=== PATIENT | male | born 2000 | race Caucasian/White ===

== ENCOUNTER 2020-05-11 19:47 | Emergency (ER) | payer OTHER, SELFPAY ==
[2020-05-11 19:50] VITALS: BP 123/68; PULSE 99; RESP 20; TEMP 36.7; O2SAT 98; BMI 21.7
--- NOTE | 2020-05-11 19:56 | XR_ITS ---
PROCEDURE: XR SHOULDER LT MIN 2V CLINICAL INDICATION: FALL Pain COMPARISON: No exams were available for comparison FINDINGS: No fracture or dislocation. No lytic or blastic change. There is normal mineralization. The joint spaces are well-preserved. No significant degenerative/arthritic changes. No erosive changes evident. Other findings:None. IMPRESSION: No acute findings. Dictated by: Slick Cobb MD 05/12/2020 05:19 Slick Cobb MD in [place] 05/12/2020 05:19
--- NOTE | 2020-05-11 19:56 | XR_ITS ---
PROCEDURE: XR SCAPULA LT CLINICAL INDICATION: FALL Posttraumatic pain COMPARISON: No exams were available for comparison FINDINGS: No fracture or dislocation. No lytic or blastic change. There is normal mineralization. The joint spaces are well-preserved. No significant degenerative/arthritic changes. No erosive changes evident. Other findings:None. IMPRESSION: No acute findings. Dictated by: Slick Cobb MD 05/12/2020 05:18 Slick Cobb MD in [place] 05/12/2020 05:18
--- NOTE | 2020-05-11 20:04 | HMH.EDUTC ---
[facility] [place] Disposition Clinical Impression: Muscle strain, shoulder region Qualifiers: Encounter type: initial encounter Laterality: left Qualified Code(s): S46.912A - Strain of unspecified muscle, fascia and tendon at shoulder and upper arm level, left arm, initial encounter Disposition: Home, Self-Care Condition on Discharge: Good Instructions: Muscle Strain, Methocarbamol, DI for Muscle Spasm Additional Instructions: *Ibuprofen blanca 6 hours with meal as needed for pain/inflammation if your doctor has told you that you can take it *Not additional anti-inflammatory like motrin, aleve, advil with the above amount of ibuprofen. You can still take Tylenol every 4 hours as needed if you need something else for pain *Ice 20 minutes every 2 hours for the first 48 hours after the initial injury followed by moist heat every 20 minutes 3-4 times a day to affected area *Muscle relaxer as prescribed as needed for muscle spasms but remember, it WILL cause drowsiness You cannot take it and drive, operate machinery or care for small children. *Keep this area active, no movement leads to more stiffness, However take it easy and avoid heavy lifting pushing or pulling *Follow up with you family doctor if no improvement for further treatment next week You may call back to the [facility] tomorrow for the official reading of your xray by the Radiologist Straight to ER if any life threatening symptoms Over the counter Muscle rubs like biofreeze may help with pain along with over the counter patches like salonpas Prescriptions: methocarbamoL [Methocarbamol 500mg Tablet] 500 mg PO BID PRN 5 Days #10 tab PRN Reason: Muscle Spasm Transmission Status: Pending to [id number] Referrals: Anisa Shirley [Primary Care Provider] - As needed Time of Disposition: 20:42 Medical Decision Making - Keshawn Inquiry Pt receiving controlled substance: No Keshawn was queried for this patient: No Vital Signs: 05/11/20 19:50 Temperature 98.0 F Temperature Source Oral Pulse Rate [Right Brachial] 99 H Respiratory Rate 20 Blood Pressure [Right Arm] 123/68 Blood Pressure Mean [Right Arm] 86 Blood Pressure Source [Right Arm] Automatic Cuff Blood Pressure Position [Right Arm] Sitting 02 Sat by Pulse Oximetry 98 Oxygen Delivery Method Room Air Orders (Tests/Meds): ORDERS Category Date Time Status XR scapula LT Stat Exams 05/11/20 19:56 Taken XR shoulder LT min 2V Stat Exams 05/11/20 19:56 Taken - Radiology Data #1 Image(s): Shoulder Image Reviewed: Yes I reviewed the patient's radiology image w/the ED provider Preliminary Findings: No Fracture Seen #2 Image(s): Other (scapula) Image Reviewed: Yes I reviewed the patient's radiology image w/the ED provider Preliminary Findings: No Fracture Seen [facility] HPI - General Stated complaint: left shoulder pain Time Seen by Provider: 05/11/20 20:04 Mode of Arrival: Ambulatory Source of Information: Patient, Parent(s) Limitations: No Limitations Description of Symptoms (Recalled from Triage Doc. by RN): PATIENT C/O LEFT SHOULDER PAIN. STATES HE WAS AT A CONSTITUTION PARTY AND FELL, PAIN STARTED 2 DAYS LATER HEENT Symptoms (Recalled from RN notes): No Resp Symptoms (Recalled from RN notes): No Skin Symptoms (Recalled from RN notes): No MS Symptoms (Recalled from RN notes): Yes Functional Status (Recalled from RN notes): WNL - History of Present Illness Provider Complaint: Patient state that he was at a democrat last Friday when he was drinking and fell State that he twisted his ankle and bruised his leg but that has improved States that about 2 days after he fell he started having pain in his left shoulder blade area that hurts when he moves it or tries to raise his arm States that he does not recall hurting it but pain has continued so he come in tonight to get it checked - Related Data Home Medications Medication Instructions Recorded Confirmed Escitalopram Oxalate [Lexapro] 10 mg PO DAILY 05/11/2005/11
[2020-05-11 20:45] VITALS: BP 123/68; PULSE 99; RESP 20; TEMP 36.7; O2SAT 98
== END 2020-05-11 20:50 | disposition home or self-care (01) ==
PROVIDERS: Emergency Provider Nurse Practitioner; PCP Family Medicine
DX: S46.912A Strain of unspecified muscle, fascia and tendon at shoulder and upper arm level, left arm, initial encounter (principal); W01.0XXA Fall on same level from slipping, tripping and stumbling without subsequent striking against object, initial encounter; Y92.89 Other specified places as the place of occurrence of the external cause; F17.210 Nicotine dependence, cigarettes, uncomplicated
CPT/HCPCS: 73010; 73030; 99201

== ENCOUNTER 2020-05-28 11:26 | Emergency (ER) | payer OTHER, SELFPAY ==
[2020-05-28 11:27] VITALS: BP 117/71; PULSE 82; RESP 16; TEMP 36.6; O2SAT 96; BMI 21.1
[2020-05-28 11:45] VITALS: BP 117/71; PULSE 82; RESP 16; TEMP 36.7; O2SAT 96; BMI 21.2
--- NOTE | 2020-05-28 11:49 | XR_ITS ---
PROCEDURE: XR FOOT RT MIN 3V CLINICAL INDICATION: injury Pain COMPARISON: CR Foot L from 12/21/2018 FINDINGS: There is a nondisplaced fracture involving head the 4th metatarsal at the diaphyseal metaphyseal junction. The joint spaces are well-preserved. No significant degenerative/arthritic changes. No erosive changes evident. Other findings:None. IMPRESSION: Nondisplaced fracture head of 4th metatarsal Dictated by: Slick Cobb MD 05/29/2020 05:35 Slick Cobb MD in [place] 05/29/2020 05:35
--- NOTE | 2020-05-28 12:11 | HMH.EDUTC ---
[facility] [place] Disposition Clinical Impression: Fracture of toe Qualifiers: Encounter type: initial encounter Toe: lesser toe Fracture type: closed Phalanx: distal Fracture alignment: nondisplaced Laterality: right Qualified Code(s): S92.534A - Nondisplaced fracture of distal phalanx of right lesser toe(s), initial encounter for closed fracture Disposition: Home, Self-Care Condition on Discharge: Good Instructions: DI for Foot Fracture Additional Instructions: ice 20 mins and repeat every hour elevated splint in place non weight bearing follow up with dr fine in am call for appointment Referrals: Anisa Shirley [Primary Care Provider] - lAayna Reeves DPM [Staff Physician] - Forms: Work/School Release Time of Disposition: 12:34 Medical Decision Making - Keshawn Inquiry Pt receiving controlled substance: No Vital Signs: 05/28/20 11:27 05/28/20 11:45 Temperature 98 F 98.0 F Temperature Source Oral Oral Pulse Rate [Radial] 82 82 Respiratory Rate 16 16 Blood Pressure [Right Arm] 117/71 Blood Pressure [Right Radial Artery] 117/71 Blood Pressure Mean [Right Arm] 86 Blood Pressure Mean [Right Radial Artery] 86 Blood Pressure Source [Right Arm] Automatic Cuff Blood Pressure Position [Right Arm] Sitting Blood Pressure Position [Right Radial Artery] Sitting 02 Sat by Pulse Oximetry 96 96 Oxygen Delivery Method Room Air Room Air Orders (Tests/Meds): ORDERS Category Date Time Status XR foot RT min 3V Stat Exams 05/28/20 11:49 Taken [facility] [place] HPI - General Chief complaint: Extremity Injury, Lower Stated complaint: AO 04/26/20 Rt foot injury Time Seen by Provider: 05/28/20 12:11 Mode of Arrival: Wheelchair Limitations: No Limitations Description of Symptoms (Recalled from Triage Doc. by RN): to ed per pvt car states injured rt foot riding a bull lastnight. - History of Present Illness Provider Complaint: 19 yr old male presents for rt foot pain. pt states he was riding a bull last pm when the bull bucked knocking his foot into the shoot. pt states he is unable to move toes and put weight on foot. - Related Data Home Medications Medication Instructions Recorded Confirmed Escitalopram Oxalate [Lexapro] 10 mg PO DAILY 05/11/20 05/11/20 Previous Rx's Medication Instructions Recorded methocarbamoL [Methocarbamol 500mg 500 mg PO BID PRN 5 Days #10 tab 05/11/20 Tablet] Allergies Allergy/AdvReac Type Severity Reaction Status Date / Time No Known Allergies Allergy Verified 04/27/20 11:49 [facility] History - Hepatitis A Screen Attestation statement:: This patient has been screened for Hepatitis A risk factors. I have reviewed the patient's past medical history: Yes Laterality Cases: Bilateral: Tonsillectomy Other Surgeries: Yes: No Previous Surgery Amputation: No Fractures: No - Social History Smoking Status: Current every day smoker Tobacco Type: cigarettes # Packs/Day (cigarettes): 1 Alcohol Intake: never Alcohol Intake Frequency:: a few times a month Substance Use Type: denies use Occupational Status: other Housing: house Household Members: family Family Hx:: Non-contributory ROS Obtained: Yes Systems reviewed as appropriate & no additional complaints - Constitutional Constitutional: Reports system reviewed and no additional complaints, except as docu, Denies chills - Eyes Eyes: Reports system reviewed and no additional complaints, except as docu, Denies blurry vision - ENT Ears, Nose, Mouth, and Throat: Reports system reviewed and no additional complaints, except as docu, Denies vertigo/dizziness - Cardiovascular Cardiovascular: Reports system reviewed and no additional complaints, except as docu, Denies chest pain - Respiratory Respiratory: Yes system reviewed and no additional complaints, except as docu, No dyspnea - Gastrointestinal Gastrointestingal: Reports: system reviewed and no additional complaints, except as docu. Denies: nausea - Genitourinary
[2020-05-28 12:55] VITALS: BP 117/71; PULSE 82; RESP 16; TEMP 36.7; O2SAT 96
== END 2020-05-28 13:06 | disposition home or self-care (01) ==
PROVIDERS: Emergency Provider Nurse Practitioner Family; PCP Family Medicine
DX: S92.344A Nondisplaced fracture of fourth metatarsal bone, right foot, initial encounter for closed fracture (principal); V80.018A Animal-rider injured by fall from or being thrown from other animal in noncollision accident, initial encounter; Y93.I9 Activity, other involving external motion; Y92.89 Other specified places as the place of occurrence of the external cause; F17.210 Nicotine dependence, cigarettes, uncomplicated
CPT/HCPCS: 29515; 73630; 99203; G0463

== ENCOUNTER → 2020-05-29 16:21 | Outpatient (CLI) | payer OTHER, SELFPAY ==
[2020-05-29 17:04] LABS: Basophils # 0.1 K/mm3 (0-0.2); Basophils % 1.1 % (0.1-2.0); Eosinophils # 0.1 K/mm3 (0.0-0.4); Eosinophils % 1.7 % (0.1-12.0); Hematocrit 49.9 % (42.0-52.0); Hemoglobin 17.7 g/dL (14.1-18.0); Lymphocytes % 29.4 % (10-50); Mean Corpuscular HGB Conc 35.5 g/dL (31.8-35.4); Mean Corpuscular Volume 92.9 fl (80-94); Mean Platelet Volume 7.4 fl (7.4-10.4); Monocytes # 0.6 K/mm3 (0.1-1.0); Monocytes % 8.8 % (1.7-9.3); Neutrophils % 58.9 % (37.0-80.0); Platelet Count 329 K/mm3 (142-424); Red Blood Count 5.37 M/mm3 (4.60-6.20); Red Cell Distribution Width 13.2 % (11.5-17.5); White Blood Count 6.7 K/mm3 (4.5-13.0)
[2020-05-29 17:37] LABS: Anion Gap 11.6 mEq/L (5-15); Blood Urea Nitrogen 9 mg/dl (9-20); Calcium 9.6 mg/dl (8.4-10.2); Carbon Dioxide 29 mmol/L (22.0-30.0); Chloride 102 mmol/L (98-107); Estimated Glomerular Filt Rate 96 ml/min (>60); GFR (African American) 116 ML/MIN (>60); Glucose 90 mg/dl (74-100); Potassium 4.6 mmoL/L (3.5-5.1); Sodium 138 mmol/L (136-145)
[2020-05-29 18:00] LABS: Coronavirus 19 IgG Antibody Negative (Negative); Coronavirus 19 IgM Antibody Negative (Negative)
== END ==
PROVIDERS: PCP Nurse Practitioner; Visit Provider Podiatrist
DX: Z01.818 Encounter for other preprocedural examination (principal); Z03.818 Encounter for observation for suspected exposure to other biological agents ruled out; S92.341A Displaced fracture of fourth metatarsal bone, right foot, initial encounter for closed fracture
CPT/HCPCS: 36415; 80048; 85025; 86328

== ENCOUNTER 2020-05-31 06:12 | Day surgery (SDC) | payer OTHER, SELFPAY ==
[2020-05-30 12:38] VITALS: BMI 21.2
[2020-05-31] VITALS (11 sets, daily range): BP systolic 128–145; BP diastolic 67–85; PULSE 85–93; RESP 12–18; TEMP 36.3–38; O2SAT 96–100
--- NOTE | 2020-05-31 06:37 | HMH.OPNOTE ---
Date of procedure: 05/31/20 Pre-op Diagnosis:: 1. Right 4th metatarsal fracture 2. Right sesamoid fracture Post-op Diagnosis:: Same Procedure performed:: 1. Right fourth metatarsal ORIF 2. Injectable amniotic graft (Viaflow) 3. Application of posterior splint Surgeon:: Alayna Reeves DPM PROGRESSIVE CARE NURSE:: Sacha Glover Anesthesia: GETA, local (30cc 0.5% mary with epi) Estimated blood loss (mL): 10 Clinical Note:: Patient is a 19M who was bull riding and caught the foot. Right 4th Metatarsal Fracture Pre-op: X-rays 3 views of right foot taken 05/28/20. Report noted. FINDINGS: There is a nondisplaced fracture involving head the 4th metatarsal at the diaphyseal metaphyseal junction. The joint spaces are well-preserved. No significant degenerative/arthritic changes. No erosive changes evident. Other findings: None. IMPRESSION: Nondisplaced fracture head of 4th metatarsal. X-rays reviewed and discussed with the patient/grandmother. Conservative treatment discussed but not recommended. Patient did walk after the injury, with increased pain and swelling. Suspect 4th met fracture displaced. Pain to sesamoid and cuneiform. Plan for intra-op x-rays. Likely will not need ORIF but discussed with patient if displaced. DOI: 05/27/20, bull riding. We discussed surgery. Patient is young, healthy and active. 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 All risks and benefits were discussed including but not limited to: damage to blood vessels and nerves, bleeding, infection, wound complications, delayed, mal or non-union of bone, post-traumatic arthritis, need for further surgery, need for removal of implant, prolonged swelling of the extremity, prolonged pain, CRPS/RSD, DVT, and anesthetic complications. No guarantees were given. All questions fully answered. The patient verbalized understanding and agreed to proceed with surgery. Consent was obtained. Discussed DVT ppx, low risk-no meds given. Necessary labs and pre-op testing ordered: CBC, BMP, covid. Pt was given an e-Rx for [place] 7.5/325 #30, Zofran, Motrin. Patient placed into splint. Patient has crutches. Operative findings:: The right fourth metatarsal neck was fractured with impaction noted. Several small pieces of comminuted fracture fragments noted. The metatarsal head cartilage was intact but scuffed. There was partial tear noted to the medial collateral MPJ ligament. Operative note:: On this date and time patient was deemed an appropriate surgical candidate. With informed consent signed, the patient was taken to the operating theater. The patient was positioned supine. General anesthesia was induced. Tourniquet was applied to the mid-calf. The right lower extremity was prepped and draped in normal sterile fashion. Right 4th Metatarsal ORIF: Attention was directed to the dorsal foot, where intra-op fluoroscopy was used to map out the 4th metatarsal on both the AP, MO and lateral views. Tourniquet was inflated at 225 mmHg. A 15' blade was used to make an incision extending from the 4th metatarsal phalangeal joint to the fourth metatarsal shaft. Blunt dissection was utilitzed to dissect thru subcutaneous tissue with care taken to maintain surgical hemostasis and safely retract neurovascular structures. A mixture of sharp and blunt dissection technique was then used to carry dissection down through the deep fascia with care taken to safely retract the extensor tendon laterally. Dissection was used to incise through the periosteum and the capsule over the fourth metatarsal phalangeal joint exposing the metatarsal head. On the lateral fourth metatarsal there was one main fracture fragment. However on the medial aspect and there were several small fracture fragments and comminution noted. Neck impacted into the head. Partial tear to medial collateral ligament. A bone hook was used to distract the fracture and a curette was used to remove fibrotic debris. The wound was flushed with copious amounts of normal sterile saline. At this point reduction was attempted.
--- NOTE | 2020-05-31 06:48 | P.PN_ITS ---
[facility] Anesthesia Checklist - Structural Data Admitted From: Home Planned Operative Procedure/s: orif r metatarsal Consent for Planned Operative Procedure(s) Verified: Yes - Additional verifications Anesthesia Reactions: No Hx Blood Transfusions: No Blood Transfusion Reaction: No - Airway Assessment C-Spine Mobility Assessed: Yes TMJ Mobility Assessed: Yes Dentition: Good Dentition - Neurological Assessment Level of Consciousness: Awake, Alert, Appropriate - Anesthesia Plan Anesthesia Risk discussed: Yes Anesthesia Plan: Verified ASA Class: II Anesthesia Type: General [facility] History I have reviewed the patient's past medical history: Yes Medical History: Reports:: Anxiety, Depression Denies:: Cancer, Diabetes Mellitus Type 1, Diabetes Mellitus Type 2, Internal Pacemaker, MRSA, Seizures *Have you ever received a pneumonia vaccine?: No *Have you received a flu vaccine this season?: No Other Medical History: Denies: Blood Transfusion Reaction Anesthesia experience/problems:: none Laterality Cases: Bilateral: Tonsillectomy Other Surgeries: Yes: No Previous Surgery. No: Pacemaker Amputation: No Fractures: No - *Social History Last grade of school completed: Advanced degree Smoking Status: Current every day smoker Tobacco Type: cigarettes # Packs/Day (cigarettes): 1 Alcohol Intake: never Alcohol Intake Frequency:: a few times a month Substance Use Type: denies use *Occupational Status:: employed Housing: house Household Members: family *Travel in the last 8 weeks: Inside the [place] - Psychiatric History Pschychiatric History:: Reports:: Anxiety, Depression Family Hx:: Heart Attack
--- NOTE | 2020-05-31 07:43 | SUR.OPER ---
0743-updated family at this time
--- NOTE | 2020-05-31 08:00 | XR_ITS ---
PROCEDURE: XR FOOT RT MIN 3V CLINICAL INDICATION: Post op ORIF Follow-up surgery COMPARISON: CR Foot L from 12/21/2018 CR XR FOOT RT MIN 3V from 05/28/2020 FINDINGS: There is an overlying cast in place obscuring bone detail. A dorsal bone plate is present at the distal aspect of the 4th metatarsal stabilizing the fracture fragments with good alignment. Cerclage wires also present. Other findings:None. IMPRESSION: Good alignment status post ORIF 4th metatarsal fracture Dictated by: Slick Cobb MD 05/31/2020 18:18 Slick Cobb MD in [place] 05/31/2020 18:18
--- NOTE | 2020-05-31 08:13 | HMH.ANESI ---
[facility] Anesthesia Record Part I Intake, IV Amount: 1,500 Estimated blood loss (mL): 0 Urine output (mL): 0 Blood Pressure: 145/79 SaO2: 98 Pulse Rate: 92 Respiratory Rate: 12 Temperature: 98.7 F Patient is:: Awake, Stable Stable to PACU at:: 08:10
--- NOTE | 2020-05-31 08:28 | PC.NURSE ---
0819-radiology at bedside
--- NOTE | 2020-05-31 08:38 | PC.NURSE ---
0838-pt drinking water w/out difficulty, detailed report called to Camilo[facility]
--- NOTE | 2020-05-31 08:49 | PC.NURSE ---
0840-pt transported to post op via stretcher w/arianne rails up and left in care of FROILAN Page with bed locked in lowest position, vss, pt stable, polar pack given to patient as ordered per MD
--- NOTE | 2020-05-31 11:36 | XR_ITS ---
PROCEDURE: XR FOOT RT 2V CLINICAL INDICATION: ORIF 4TH TOE COMPARISON: CR Foot L from 12/21/2018 CR XR FOOT RT MIN 3V from 05/28/2020 CR XR FOOT RT MIN 3V from 05/31/2020 FINDINGS: Fluoroscopy time: 19 seconds Single image is submitted demonstrating a bone plate at the dorsal and distal aspect of the 4th metatarsal with good alignment of the fracture fragments. Other findings:None. IMPRESSION: S/p ORIF 4th metatarsal with good alignment Dictated by: Slick Cobb MD 05/31/2020 18:17 Slick Cobb MD in [place] 05/31/2020 18:17
--- NOTE | 2020-05-31 14:04 | P.PN_ITS ---
[facility] Anesthesia Record Part II Discharge Time: 08:40 Destination: Surgical Day Care (OP Surgery) PACU nurse assessment reviewed?: Yes Patient Condition:: Good Anesthesia Complications:: None Swallowing reflex intact?: Yes Cyanosis?: No Blood Pressure: 128/76 Pulse Rate: 87 Temperature: 98.5 F Mental Status: Alert & Oriented Pain level:: 0 Nausea and/or vomitting:: None Intake, IV Amount: 0
== END 2020-05-31 09:11 | disposition home or self-care (01) ==
LOC: OR 06:13
PROVIDERS: PCP Family Medicine; Visit Provider Podiatrist
PROC: (CPT 28485; principal; 2020-05-31 06:30)
DX: S92.341A Displaced fracture of fourth metatarsal bone, right foot, initial encounter for closed fracture (principal); S92.811A Other fracture of right foot, initial encounter for closed fracture; S93.691A Other sprain of right foot, initial encounter; F41.9 Anxiety disorder, unspecified; F17.290 Nicotine dependence, other tobacco product, uncomplicated; X50.0XXA Overexertion from strenuous movement or load, initial encounter; Y93.59 Activity, other involving other sports and athletics played individually; Y92.39 Other specified sports and athletic area as the place of occurrence of the external cause; F17.210 Nicotine dependence, cigarettes, uncomplicated; F32.9 Major depressive disorder, single episode, unspecified; Z79.899 Other long term (current) drug therapy
CPT/HCPCS: 28485; 73620; 73630; 76000; 96374; C1713; C1762; C1776; J2405

== ENCOUNTER 2020-06-04 18:06 | Emergency (ER) | payer OTHER, SELFPAY ==
[2020-06-04 18:07] VITALS: BP 102/81; PULSE 83; RESP 19; TEMP 36.9; O2SAT 99; BMI 21.1
--- NOTE | 2020-06-04 19:04 | XR_ITS ---
PROCEDURE: XR FOOT RT MIN 3V CLINICAL INDICATION: FALL Posttraumatic pain COMPARISON: CR Foot L from 12/21/2018 CR XR FOOT RT MIN 3V from 05/28/2020 CR XR FOOT RT MIN 3V from 05/31/2020 CR XR FOOT RT 2V from 05/31/2020 FINDINGS: An overlying cast obscures bony detail. Bone plate is present at the distal aspect of the 4th metatarsal with good alignment of the fracture fragments. No other abnormality is apparent. The joint spaces are well-preserved. No significant degenerative/arthritic changes. No erosive changes evident. Other findings:None. IMPRESSION: Bone plate remains in place at the distal aspect of the 4th metatarsal. No other abnormality is apparent however, a cast is in place which could obscure nondisplaced fractures. Dictated by: Slick Cobb MD 06/05/2020 05:59 Slick Cobb MD in [place] 06/05/2020 05:59
--- NOTE | 2020-06-04 19:04 | HMH.EDUTC ---
[facility] [place] Disposition Clinical Impression: Fall Qualifiers: Encounter type: initial encounter Qualified Code(s): W19.XXXA - Unspecified fall, initial encounter Disposition: Home, Self-Care Condition on Discharge: Good Additional Instructions: FOllow up with Dr Reeves if you start having pain or bleeding Further instructions as you was given by Dr Reeves Return if needed Straight to ER if any life threatening symptoms Referrals: Anisa Shirley [Primary Care Provider] - As needed Alayna Reeves DPM [Staff Physician] - Time of Disposition: 19:34 Medical Decision Making - Keshawn Inquiry Pt receiving controlled substance: No Keshawn was queried for this patient: No Vital Signs: 06/04/20 18:07 Temperature 98.4 F Temperature Source Oral Pulse Rate [Left Radial] 83 Respiratory Rate 19 Blood Pressure [Right Arm] 102/81 L Blood Pressure Mean [Right Arm] 88 Blood Pressure Source [Right Arm] Automatic Cuff Blood Pressure Position [Right Arm] Sitting 02 Sat by Pulse Oximetry 99 Oxygen Delivery Method Room Air Orders (Tests/Meds): ORDERS Category Date Time Status XR foot RT min 3V Stat Exams 06/04/20 19:04 Taken - Radiology Data #1 Image(s): Foot/Toes Image Reviewed: Yes I reviewed the patient's radiology image w/the ED provider Preliminary Findings: Normal/NAD No acute change hardware appears in place [facility] HPI - General Stated complaint: AO 06/04/20 Injury right foot,had surgery WED same Time Seen by Provider: 06/04/20 19:04 Mode of Arrival: Ambulatory Source of Information: Patient Limitations: No Limitations Description of Symptoms (Recalled from Triage Doc. by RN): c/o right foot pain after getting out of the shower. Previous surgery on this foot and he bumped it when he hit the floor HEENT Symptoms (Recalled from RN notes): No Resp Symptoms (Recalled from RN notes): No Skin Symptoms (Recalled from RN notes): No MS Symptoms (Recalled from RN notes): No Functional Status (Recalled from RN notes): wnl - History of Present Illness Provider Complaint: Patient states that he had surgery last week on his right foot from fracture States that he got out of the shower and fell State that he didnt hit his foot he hit his toes against the floor and twisted to protect his foot States that family was worried and wanted him to get it checked out States that he isnt having any pain but wanted to have it checked - Related Data Home Medications Medication Instructions Recorded Confirmed Escitalopram Oxalate [Lexapro] 10 mg PO DAILY 05/11/20 05/29/20 Previous Rx's Medication Instructions Recorded methocarbamoL [Methocarbamol 500mg 500 mg PO BID PRN 5 Days #10 tab 05/11/20 Tablet] hydrocodone 7.5 mg-acetaminophen 1 tab PO Q4-6H PRN 7 Days #40 tab 05/29/20 325 mg tablet ibuprofen 800 mg tablet 800 mg PO BID #60 tab 05/29/20 ondansetron 4 mg disintegrating 4 mg PO Q6H #30 tab 05/29/20 tablet Allergies Allergy/AdvReac Type Severity Reaction Status Date / Time No Known Allergies Allergy Verified 05/29/20 14:56 - Worker's Comp Is this a Worker's Comp case?: No [facility] History - Hepatitis A Screen Drug use history?: No High risk sexual behaviors?: No History of sexually transmitted infection?: No Currently employed?: No Childcare worker?: No Do you have indoor plumbing?: Yes Do you have electricity?: Yes Attestation statement:: This patient has been screened for Hepatitis A risk factors. I have reviewed the patient's past medical history: Yes Medical History: Reports:: Anxiety, Depression Denies:: Cancer, Diabetes Mellitus Type 1, Diabetes Mellitus Type 2, Internal Pacemaker, MRSA, Seizures Other Medical History: Denies: Blood Transfusion Reaction Laterality Cases: Bilateral: Tonsillectomy Other Surgeries: Yes: No Previous Surgery. No: Pacemaker Amputation: No Fractures: No - Social History Smoking Status: Current every day smoker Tobacco Type: cigarettes # Packs/Day
[2020-06-04 19:37] VITALS: BP 102/81; PULSE 83; RESP 19; TEMP 36.9; O2SAT 99
== END 2020-06-04 19:38 | disposition home or self-care (01) ==
PROVIDERS: Emergency Provider Nurse Practitioner; PCP Family Medicine
DX: S90.121A Contusion of right lesser toe(s) without damage to nail, initial encounter (principal); W18.2XXA Fall in (into) shower or empty bathtub, initial encounter; Y92.019 Unspecified place in single-family (private) house as the place of occurrence of the external cause; F41.8 Other specified anxiety disorders; F17.210 Nicotine dependence, cigarettes, uncomplicated; Z79.899 Other long term (current) drug therapy; S92.341D Displaced fracture of fourth metatarsal bone, right foot, subsequent encounter for fracture with routine healing; S92.811D Other fracture of right foot, subsequent encounter for fracture with routine healing; S92.244D Nondisplaced fracture of medial cuneiform of right foot, subsequent encounter for fracture with routine healing
CPT/HCPCS: 73630; 99202; G0463

== ENCOUNTER → 2020-06-28 08:24 | Outpatient (CLI) | payer OTHER, SELFPAY ==
--- NOTE | 2020-06-28 08:39 | XR_ITS ---
PROCEDURE: XR FOOT WT BEARING RT 3V CLINICAL INDICATION: ORIF 4th toe postoperstive COMPARISON: CR XR FOOT RT MIN 3V from 05/28/2020 CR XR FOOT RT 2V from 05/31/2020 CR XR FOOT RT MIN 3V from 05/31/2020 CR XR FOOT RT MIN 3V from 06/04/2020 FINDINGS: The posterior splint has been removed. Dorsal bone plate remains in place with cerclage wire 3 cortical screws along the distal aspect the 4th metatarsal with good bony alignment. The joint spaces are well-preserved. No significant degenerative/arthritic changes. No erosive changes evident. Other findings:None. IMPRESSION: Good alignment status post ORIF 4th metatarsal Dictated by: Slick Cobb MD 06/28/2020 15:55 Slick Cobb MD in [place] 06/28/2020 15:55
== END ==
PROVIDERS: PCP Family Medicine; Visit Provider Podiatrist
DX: S92.344D Nondisplaced fracture of fourth metatarsal bone, right foot, subsequent encounter for fracture with routine healing (principal); Z98.890 Other specified postprocedural states
CPT/HCPCS: 73630

== ENCOUNTER → 2020-07-27 08:35 | Outpatient (CLI) | payer OTHER, SELFPAY ==
--- NOTE | 2020-07-27 08:39 | XR_ITS ---
PROCEDURE: XR FOOT WT BEARING RT 3V CLINICAL INDICATION: post-op Follow-up surgery COMPARISON: CR XR FOOT RT MIN 3V from 05/28/2020 CR XR FOOT RT 2V from 05/31/2020 CR XR FOOT RT MIN 3V from 05/31/2020 CR XR FOOT RT MIN 3V from 06/04/2020 CR XR FOOT WT BEARING RT 3V from 06/28/2020 FINDINGS: There is a dorsal bone plate at the distal aspect of the 4th metatarsal with good alignment. There is healing of the distal fracture at the 4th metatarsal. The splint has been removed. IMPRESSION: Good alignment status post ORIF healing 4th metatarsal fracture Dictated by: Slick Cobb MD 07/27/2020 14:15 Slick Cobb MD in [place] 07/27/2020 14:15
== END ==
PROVIDERS: PCP Family Medicine; Visit Provider Podiatrist
DX: S92.344D Nondisplaced fracture of fourth metatarsal bone, right foot, subsequent encounter for fracture with routine healing (principal); S92.811G Other fracture of right foot, subsequent encounter for fracture with delayed healing; Z98.890 Other specified postprocedural states
CPT/HCPCS: 73630

== ENCOUNTER 2021-01-20 17:38 | Emergency (ER) | payer OTHER, SELFPAY ==
[2021-01-20 18:29] VITALS: BP 134/74; PULSE 56; RESP 20; TEMP 36.8; O2SAT 97; BMI 22.4
--- NOTE | 2021-01-20 19:03 | HMH.EDUTC ---
[facility] [place] Clinical Impression: Laceration of left index finger Qualifiers: Encounter type: initial encounter Damage to nail status: without damage Foreign body presence: without foreign body Qualified Code(s): S61.211A - Laceration without foreign body of left index finger without damage to nail, initial encounter Disposition: Home, Self-Care Condition on Discharge: Good Instructions: DI for Avulsion Laceration (Not Requiring Sutures) Additional Instructions: Keep the wound clean and dry. Keep a dressing on it if you are going to be getting it dirty. Watch the for signs of infection, such as redness, swelling, drainage, fever. etc. Take tylenol or ibuprofen for pain. Follow up with your regular doctor. GO TO THE ER FOR ANY WORSENING SYMPTOMS OR CONCERNS. Prescriptions: Mupirocin [Bactroban 2% Ointment 22gm tube] 1 applicatio TP TID 7 Days #1 tube Transmission Status: Received by [id number] Referrals: Anisa Shirley [Primary Care Provider] - Time of Disposition: 19:07 Medical Decision Making - Medical Records Medical records reviewed: No: I reviewed the patient's medical records. - Keshawn Inquiry Pt receiving controlled substance: No Vital Signs: 01/20/21 18:29 01/20/21 19:20 Temperature 98.2 F 98.6 F Temperature Source Oral Pulse Rate 61 Pulse Rate [Left] 56 L Respiratory Rate 20 16 Blood Pressure 134/74 Blood Pressure [Right Arm] 134/74 Blood Pressure Mean [Right Arm] 94 02 Sat by Pulse Oximetry 97 Medical Decision Narrative: The wound was cleaned well and antibiotic ointment was applied. A dressing was applied to cover it. [facility] [place] - General Stated complaint: AO 01/20 1700 lac L 2 nd finger Time Seen by Provider: 01/20/21 19:04 Mode of Arrival: Ambulatory Source of Information: Patient Limitations: No Limitations Description of Symptoms (Recalled from Triage Doc. by RN): PT WS CLEANING THE PLASTIC GRILL ON HIS TRUCK. A BROKEN PIECE CUT A CHUNK OUT OF THE PAD OF HIS L INDEX FINGER. HEENT Symptoms (Recalled from RN notes): No Resp Symptoms (Recalled from RN notes): No Skin Symptoms (Recalled from RN notes): Yes (l INDEX FINGER INJURY) MS Symptoms (Recalled from RN notes): No Functional Status (Recalled from RN notes): NA - History of Present Illness Provider Complaint: He states that he cut the tip of his left index finger on a sharp area on the grill of his truck. This occured right before he came in here. His tetanus immunization is up to date. - Related Data Home Medications Medication Instructions Recorded Confirmed Escitalopram Oxalate [Lexapro] 10 mg PO DAILY 05/11/20 07/27/20 Previous Rx's Medication Instructions Recorded methocarbamoL [Methocarbamol 500mg 500 mg PO BID PRN 5 Days #10 tab 05/11/20 Tablet] Mupirocin [Bactroban 2% Ointment 1 applicatio TP TID 7 Days #1 tube 01/20/21 22gm tube] Allergies Allergy/AdvReac Type Severity Reaction Status Date / Time No Known Allergies Allergy Verified 07/27/20 09:01 - Worker's Comp Is this a Worker's Comp case?: No [facility] History - Hepatitis A Screen Drug use history?: No High risk sexual behaviors?: No History of sexually transmitted infection?: No Currently employed?: No Childcare worker?: No Do you have indoor plumbing?: Yes Do you have electricity?: Yes Attestation statement:: This patient has been screened for Hepatitis A risk factors. I have reviewed the patient's past medical history: Yes Medical History: Reports:: Anxiety, Depression Denies:: Cancer, Diabetes Mellitus Type 1, Diabetes Mellitus Type 2, Internal Pacemaker, MRSA, Seizures Other Medical History: Denies: Blood Transfusion Reaction Laterality Cases: Bilateral: Tonsillectomy Other Surgeries: Yes: No Previous Surgery. No: Pacemaker Amputation: No Fractures: No - Social History Smoking Status: Current every day smoker Tobacco Type: e-cigarettes, smokeless tobacco # Packs/D
[2021-01-20 19:20] VITALS: BP 134/74; PULSE 61; RESP 16; TEMP 37
== END 2021-01-20 19:32 | disposition home or self-care (01) ==
PROVIDERS: Emergency Provider Nurse Practitioner Family; PCP Family Medicine
DX: S61.211A Laceration without foreign body of left index finger without damage to nail, initial encounter (principal)
CPT/HCPCS: 99202; G0463

== ENCOUNTER → 2021-04-21 12:44 | Outpatient (CLI) | payer OTHER, SELFPAY | PROVIDERS: Visit Provider Nurse Practitioner Family | DX: U07.1 COVID-19 (principal) | CPT/HCPCS: C9803; U0003; U0005 ==

== ENCOUNTER 2023-01-31 20:33 | Emergency (ER) | payer OTHER, SELFPAY ==
[2023-01-31 20:49] VITALS: PULSE 95; RESP 18; TEMP 37.3; O2SAT 100; BMI 23.0
[2023-01-31 22:02] VITALS: BP 0/0; PULSE 0; RESP 0; TEMP -17.7; TEMP 0
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
== END 2023-01-31 21:29 | disposition left against medical advice (07) ==
LOC: ER 21:33
PROVIDERS: Emergency Provider Emergency Medicine; PCP Family Medicine
DX: Z53.21 Procedure and treatment not carried out due to patient leaving prior to being seen by health care provider (principal)
CPT/HCPCS: 99211

== ENCOUNTER 2023-06-21 07:10 | Emergency (ER) | payer OTHER, SELFPAY ==
[2023-06-21 07:11] VITALS: BP 164/97; PULSE 104; RESP 18; TEMP 37.1; O2SAT 96; BMI 23.7
--- OUTSIDE RECORDS SUMMARY | 2023-06-21 07:18 | XMS_ITS | Continuity of Care Document ---
Author Name Unknown Organization [facility] Address [address] [place] [address]- Encounter [facility] Date(s): 08/30/19 - 08/30/19 [facility] [address] [place] [address]- [facility] Attending Physician: Kirk Soto Allergies, Adverse Reactions, Alerts No Known Medication Allergies Assessment and Plan Extracted from: Title:Urgent Care Medical Complaint *[facility]- stephenie adecielo Author:Kirk Soto Date:08/30/19 Impression and Plan 1. Patient with mild lightheadedness, EKG really is unremarkable here, orthostatics are unremarkable. I recommended some rest, fluids. If he continues to have symptoms he may need further work-up. At this point I see nothing neurologically concerning. Based on his age and comorbidities I think this is probably just a mild exertional type with dehydration. If is not improved again he is to follow-up with us or primary care physician. He seems to be agreeable with that. Patient Instructions: Dizziness. Patient Education 08/30/19 10:25:00 Individuals Taught: Patient Barriers To Learning: None evident Teaching Method: Explanation Teaching Evaluation: Verbalizes understanding Functional Status 08/30/19 History of Fall in Last 3 Months Giron N o Presence of Secondary Diagnosis Giron No Use of Ambulatory Aid Giron None IV/Heparin Lock Fall Risk Giron No Gait Weak or Impaired Fall Risk Giron No rmal Mental Status Fall Risk Giron Oriented t o own ability Giron Fall Risk Score 0 Giron Fall Risk Level Low Risk (0-24) Medications Lexapro 10 mg oral tablet 10 mg = 1 tab(s), Tab, Oral, Daily, # 90 tab(s), Refill(s) 0, Type of Therapy = Maintenance Start Date: 08/30/19 Status: Ordered Vital Signs Most recent to oldest [Reference Range]: 1 Blood Pressure [90-140/60-90 mmHg] 116/7 2mmHg (08/30/19 10:25 AM) Height 182.88 cm (08/30/19 10:25 AM) Weight 70.307 kg (08/30/19 10:25 AM) Body Mass Index 21.02 kg/m2 (08/30/19 10:25 AM) Heart Rate [60-100 bpm] 82 bpm (08/30/19 10:25 AM) Temperature, Deg F 98.2 DegF (08/30/19 10:25 AM) Oxygen Saturation Value, Site 1 98 % (08/30/19 10:25 AM) Social History Social History Type Response Smoking Status Never smoker entered on: 08/30/19 Sex Male Hospital Discharge Instructions Patient Education 08/30/2019 10:39:46 Dizziness Dizziness/Lightheaded at times 1. Rest 2. Drink plenty of fluids 3 . Follow up with us if your symptoms persist Dizziness is a common problem. It is a feeling of unsteadiness or light- headedness. You may feel like you are about to faint. Dizziness can lead to injury if you stumble or fall. Anyone can become dizzy, but dizziness is more common in older adults. This condition can be caused by a number of things, including medicines, dehydration, or illness. Follow these instructions at home: Taking these steps may help with your condition: Eating and drinking ??? Drink enough fluid to keep your urine clear or pale yellow. This helps to keep you from becoming dehydrated. Try to drink more clear fluids, such as water. ??? Do not drink alcohol. ??? Limit your caffeine intake if directed by your health care provider. ??? Limit your salt intake if directed by your health care provider. Activity ??? Avoid making quick movements. ??? Rise slowly from chairs and steady yourself until you feel okay. ??? In the morning, first sit up on the side of the bed. When you feel okay, stand slowly while youhold onto something until you know that your balance is fine. ??? 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 Tighten and relax your muscles in your legs while you are standing. ??? Do not drive or operate heavy machinery if you feel dizzy. ??? Avoid bending down if you feel dizzy. Place items in your home so that they are easy for you toreach without leaning over. Lifestyle ??? Do not use any tobacco products, including cigarettes, chewing tobacco, or electronic cigarettes. If you need help quitting, ask your health care provider. ??? Try to reduce your stress level, such as with yoga or meditation. Talk with your health care provider if you need help. General instructions ??? Watch your dizziness for any changes. ??? Take medicines only as directed by your health care provider. Talk with your health care provider if you think that your dizziness is caused by a medicine that you are taking. ??? Tell a friend or a family member that you are feeling dizzy. If he or she notices any changes in your behavior, have this person call your health care provider. ??? Keep all follow-up visits as directed by your health care provider. This is important. Contact a health care provider if: ??? Your dizziness does not go away. ??? Your dizziness or light-headedness gets worse. ??? You feel nauseous. ??? You have reduced hearing. ??? You have new symptoms. ??? You are unsteady on your feet or you feel like the room is spinning. Get help right away if: ??? You vomit or have diarrhea and are unable to eat or drink anything. ??? You have problems talking, walking, swallowing, or using your arms, hands, or legs. ??? You feel generally weak. ??? You are not thinking clearly or you have trouble forming sentences. It may take a friend or family member to notice this. ??? You have chest pain, abdominal pain, shortness of breath, or sweating. ??? Your vision changes. ??? You notice any bleeding. ??? You have a headache. ??? You have neck pain or a stiff neck. ??? You have a fever. This information is not intended to replace advice given to you by your health care provider. Make sure you discuss any questions you have with your health care provider. Document Released: 11/05/2001 Document Revised: 10/17/2016 Document Reviewed: 05/08/2015 [employer] Patient Education ?? 2017 [employer]
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
[2023-06-21] MEDS: ACETAMINOPHEN 500MG TAB 1000 MG PO (07:23)
[2023-06-21 07:24] LABS: Coronavirus 19, PCR Not Detected (NotDetected); Influenza A, PCR Not Detected (NotDetected); Influenza B, PCR Not Detected (NotDetected)
[2023-06-21] MEDS: IBUPROFEN 600 MG TABLET PO (07:24)
[2023-06-21 07:40] VITALS: BP 146/84; PULSE 106; RESP 18; TEMP 37.1; O2SAT 99
== END 2023-06-21 07:45 | disposition home or self-care (01) ==
PROVIDERS: Emergency Provider Emergency Medicine; PCP Family Medicine
DX: J02.9 Acute pharyngitis, unspecified (principal); R05.9 Cough, unspecified; R51.9 Headache, unspecified; R09.81 Nasal congestion; R00.0 Tachycardia, unspecified; B34.9 Viral infection, unspecified
CPT/HCPCS: 87636; 99283

== ENCOUNTER 2023-06-23 19:40 | Outpatient (CLI) | payer OTHER, SELFPAY | END 2023-06-23 23:59 | LOC: LAB.DROPOF 19:41 | PROVIDERS: PCP Student in an Organized Health Care Education/Training Program; Visit Provider Student in an Organized Health Care Education/Training Program | DX: R07.0 Pain in throat (principal); R09.81 Nasal congestion | CPT/HCPCS: 87070 ==

== ENCOUNTER 2025-05-23 15:41 | Emergency (ER) | payer BC, SELFPAY ==
[2025-05-23 15:47] VITALS: BP 144/102
[2025-05-23 15:49] VITALS: BP 144/102; PULSE 84; RESP 15; TEMP 36.9; O2SAT 97; BMI 25.7
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
--- OUTSIDE RECORDS SUMMARY | 2025-05-23 15:53 | XMS_ITS | Clinical Summary ---
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 varenicline (Chantix) 1 MG tabletIndications: Other tobacco product nicotine dependence, uncomplicated Take 1 tablet (1 mg) by mouth 2 (two) times a day. Take with full glass of water. 60 tablet 2 4 Active vilazodone (Viibryd) 10 mg tabletIndications: Anxiety Take 1 tablet (10 mg) by mouth 1 (one) time each day with breakfast. 7 tablet 4 Active vilazodone (Viibryd) 20 MG tabletIndications: Anxiety Take 1 tablet by mouth daily with breakfast. 90 tablet 3 5 Active lamoTRIgine (LaMICtal) 100 MG tabletIndications: Anxiety Take 1/2 (one-half) tablet by mouth twice daily 90 tablet 5 Active Active Problems Problem Noted Date Diagnosed Date Anxiety 06/28/2019 Color blindness 03/13/2016 Resolved Problems Problem Noted Date Diagnosed Date Resolved Date Behavior concern 03/15/2016 03/30/2024 Encounters Date Type Department Care Team Description 02/26/2025 Refill [facility] [address] [place] [id number] Anisa Shirley MD Anxiety from Last 3 Months Immunizations Immunization Administration Dates Next Due DTaP 07/02/2005,01/19/2001,2000 ,2000 Hep A, ped/adol, 2 dose 03/10/2018,07/14/2017 Hep B, Adolescent or Pediatric 2000,2000,2000 Hib (PRP-OMP) 2000 Hib (PRP-T) 01/04/2002,2000,2000 IPV 07/22/2006,08/13/2001,2000 MMR 07/22/2005,01/04/2002 Meningococcal MCV4P 07/14/2017,12/12/2011 OPV 2000 PPD Skin Test (TB Skin Test) 05/02/2022 Tdap 12/12/2011 Varicella 12/02/2011,01/04/2002 Family History Medical History Relation Name Comments Alcohol abuse Father Drug abuse Father Alcohol abuse Maternal Grandmother Obesity Maternal Grandmother Alcohol abuse Mother Bipolar disorder Mother Blood clots Mother Conversions - Other Mother Domestic violence of adult Drug abuse Mother Obesity Mother Alcohol abuse Other 1 Cardiac disorder Other 2 Liver disease Other 3 Hyperlipidemia Other 4 Relation Name Status Comments Father Maternal Grandmother Mother Other 1 Other 2 Other 3 Other 4 Social History Tobacco Use Types Packs/Day Years Used Date Smoking Tobacco: Never Smokeless Tobacco: Former Chew Quit: 05/20/2022 Tobacco Cessation:Counseling Given: Not Answered Humiliation, Afraid, Rape, and Kick questionnair e Answer Date Recorded Within the last year, have y ou been afraid of your partner or ex-partner? No 03/30/2024 Within the last year, have y ou been humiliated or emotionally abused in other ways by your partner or ex-partner? No Within the last year, have y ou been kicked, hit, slapped, or otherwise physically hurt by your partner or ex-partner? No 03/30/2024 Within the last year, have y ou been raped or forced to have any kind of sexual activity by your partner or ex-partner? No 03/30/2024 PHQ-2 Answer Date Recorded Patient Health Questionnaire-2 Score 6 05/10/2024 Hunger Vital Sign Answer Date Recorded Within the past 12 months, y ou worried that your food would run out before you got the money to buy more. Never true 03/30/20 24 Within the past 12 months, t he food you bought just didn't last and you didn't have money to get more. Never true 03/30/2024 PRAPARE - Transportation Answer Date Re corded In the past 12 months, has l ack of transportation kept you from medical appointments or from getting medications? No 09/2023 In the past 12 months, has l ack of transportation kept you from meetings, work, or from getting things needed for daily living? No 03/30/2024 Housing Stability Vital Sign Answer Deshaun e Recorded In the last 12 months, was t here a time when you were not able to pay the mortgage or rent on time? No 03/30/2024 [address] of [address] Lived in the Last Year Not on f ile 03/30/2024 In the last 12 months, was t here a time when you did not have a steady place to sleep or slept in a halfway (including now)? No 03/30/2024 PHQ-9 Answer Date Recorded Patient Health Questionnaire-9 Score 17 05/10/2024 Utilities Answer Date Recorded In the past 12 months has th e electric, gas, oil, or water company threatened to shut off services in your home? No 03/30/2024 PHQ-2A Answer Date Recorded Patient Health Questionnaire-2 Score 6 08/01/2022 Sex and Gender Information Value Date Recorded Sex Assigned at Not on file Legal Sex Male 6:18 PM EDT Gender Identity Not on file Sexual Orientation Not on file Last Filed Vital Signs Vital Sign Reading Time Taken Comments Blood Pressure 122/74 05/10/2024 2:22 PM EST Pulse 105 05/10/2024 2:22 PM EST Temperature 36.5 C (97.7 F) 05/10/2024 2:22 PM EST Respiratory Rate 14 05/10/2024 2:22 PM EST Oxygen Saturation 95% 05/10/2024 2:22 PM EST Inhaled Oxygen Concentration - - Weight 83.5 kg (184 lb) 05/10/2024 2:22 PM EST Height 185.4 cm (6' 1 ) 05/10/2024 2:22 PM EST Body Mass Index 24.28 05/10/2024 2:22 PM EST Plan of Treatment Health Maintenance Due Date Last Done Comments [facility]-HIV Screening 2000 [facility]-Hepatitis C Screening 2000 [facility]-Infant/Child/Adol SDOH Screenings 2000 HPV Vaccines (1 - Male 3-dose series) 2015 [facility]- SDOH Screenings 2018 [facility]-Adult SDOH Screenings 2018 [facility]-DTaP,Tdap,and Td Vaccines (5 - Td or Tdap) 12/11/2021 12/12/2011, 07/22/2005, 07/02/2005, Additional history exists [facility]-IHAAW-80 Vaccine (2 - 2024- season) 2025 05/11/2021 [facility]-Influenza Vaccine (#1) 2025 [facility]-Depression Screening 05/10/2025 05/10/2024, 04/25 [facility]-Zoster Vaccines (1 of 2) 2050 12/02/2011, 01/04/2002 [facility]-Hepatitis B Vaccines Completed 001, 2000, 2000 [facility]-HIB Vaccines Completed 01/04/2002, , 2000, Additional history exists [facility]-IPV Vaccines Completed 07/22/2006, , 08/13/2001, Additional history exists [facility]-Varicella Vaccines Completed 12/02/2011, 2001 [facility]-Hepatitis A Vaccines Completed 03/10/2018, 06/26 [facility]-Pneumococcal Vaccine: Pediatrics (0 to 5 Years) and At-Risk Patients (6 to 49 Years) Aged Out No longer eligible based on patient's age to complete this topic [facility]-Rotavirus Vaccines Aged Out No lo nger eligible based on patient's age to complete this topic Insurance [place]O GONZALEZ [id number] [facility] MEDICAID Care Teams 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
[2025-05-23] MEDS: IBUPROFEN 800 MG TABLET PO (15:59)
--- NOTE | 2025-05-23 16:01 | ED_ITS ---
<Statement entered by Christiano Chavis MD - 05/23/25 22:22> Christiano Chavis MD: I was consulted by the JACIEL, and we discussed the complexity of the problems being addressed. I approve the treatment and management plan for this patient's care in the emergency department, thus performing a substantive portion of the medical decision making. Discharge Plan Disposition Patient Disposition: Home, Self-Care Prescriptions Prescriptions: No Action bupropion HCl 150 mg tablet extended release 24 hr 150 mg PO DAILY Patient Comments: TAKE 1 TABLET BY MOUTH ONCE DAILY IN THE MORNING DO NOT CHEW, CRUSH, OR SPLIT ondansetron 4 mg tablet,disintegrating 4 mg PO Q8H PRN (Reason: nausea and vomiting) Qty: 20 0RF mwikbnlrrgjqshi-dftrymyrx-XR [Bromfed DM] 2-30-10 mg/5 mL syrup 5 ml PO Q4-6H PRN (Reason: cold symptoms) Qty: 118 0RF lamotrigine [Lamictal] 25 mg tablet 25 mg PO DAILY azithromycin [Zithromax Z-Vasquez] 250 mg tablet See Rx Instructions PO .COMPLEX Qty: 6 0RF Rx Instructions: For 250 mg dose pack: take 500 mg today (day 1), then 250 mg for 4 days (days 2-5) PO dextromethorphan-guaifenesin 20-400 mg tablet 1 tab PO Q4-6H PRN (Reason: cough) Qty: 20 0RF Referrals Follow up/Referrals: Kelly Miranda PA [Physician Product Technician, Family Practice] - See instructions Activity Restrictions/Add. Instructions Additional Instructions/Restrictions: Ice, elevate, take Tylenol and ibuprofen for pain. Off work for a week. Use walking boot while up. May take it off if you have your foot elevated. Please follow with PCP for further imaging and workup. Clinical Impressions Clinical Impression: Abrasion of foot Instructions Patient Instructions: Sprain Print Language Print Language: Turkish Discharge ED Provider: Christiano Chavis General Adult HPI General Chief complaint: Extremity Injury, Lower Stated complaint: AO 05/23/25 1200 injury foot Time Seen by Provider: 05/23/25 15:49 Mode of Arrival: Wheelchair Source of Information: Patient Description of Symptoms (Recalled from ER Triage Doc. by RN): PATIENT STATES HE WAS TRYING TO LET A JESSICA DOWN WHEN HE HIT HIS TOP RIGHT FOOT WITH A 2X6. HE REPORTS PAIN IN THE BOTTOM OF HIS FOOT History of Present Illness HPI narrative: 24-year-old male presents to the ED today for complaint of dropping a 2 x 6 on his right foot about noon today. He reports pain at the bottom of his foot. He said he is walking on the ball of his foot. Related Data Home Medications ?Medication ?Instructions ?Recorded ?Confirmed bupropion HCl 150 mg 24 hr tablet, 150 mg PO DAILY 07/06/24 extended release lamotrigine 25 mg tablet (Lamictal) 25 mg PO DAILY 04/1907/06/24 Previous Rx's ?Medication ?Instructions ?Recorded urfizvwmplpcdab-gnyyxbyxwjeeewv-MT 5 ml PO Q4-6H PRN c old symptoms 06/23/23 2 mg-30 mg-10 mg/5 mL oral syrup #118 mL (Bromfed DM) ondansetron 4 mg disintegrating 4 mg PO Q8H PRN nausea and 06/23/23 tablet vomiting #20 tabs azithromycin 250 mg tablet See Rx Instructions PO .COM PLEX #6 07/06/24 (Zithromax Z-Vasquez) tabs dextromethorphan-guaifenesin 20 1 tab PO Q4-6H PRN cou gh #20 tabs 07/06/24 mg-400 mg tablet Allergies Allergy/AdvReac Type Severity Reaction Status Date / Time No Known Allergies Allergy Verified 07/06/24 10:26 [facility] Disclaimer: The information contained in this section may have been updated after the patient was seen, as this information can be updated by other users. Medical History Anxiety Closed nondisplaced fracture of fourth metatarsal bone of right foot with routine healing Crush accident Surgical History Status post foot surgery R foot (hardware in place) Family History Family/Other No significant family history Social History Smoking Status: Current every day smoker tobacco type: e-cigarettes and smokeless tobacco alcohol intake: current alcohol intake frequency: a few times a month substance use type: denies use current occupational status: employed Travel in the last 8 weeks?: Inside the [place] household members: family housing: house current occupation: [employer] caffeine: Yes Have you lived/traveled outside [place] in past 30 days?: No Contact w/someone who lives/traveled outside US past 30 days?: No Exposure to someone with infectious disease in past 14 days?: No Do you have a fever (greater than 100.4 F or 38 C)?: No Have you tested positive for COVID-19?: No Exposed to someone with COVID-19 in past 14 days?: No Do you have a sore throat?: No Do you have a cough?: No Do you have any weakness?: No Do you have any diarrhea?: No Are you experiencing any unusual bleeding?: No Do you have any muscle aches/pain?: No Do you have any abdominal pain?: No Are you experiencing loss of taste or smell?: No Other Medical History Have you received the Flu Vaccine for this season: No Have you received the Pneumonia Vaccine: No ROS Obtained: Yes Systems reviewed as appropriate & no additional complaints except as documented Constitutional Constitutional: Reports as per HPI Physical Exam General General appearance: alert and in no apparent distress Head Head exam: normocephalic Eye Eye exam: Present PERRL and EOMI ENT ENT exam: Present normal oropharynx and mucous membranes moist Neck Neck exam: Present full ROM and trachea midline Respiratory Respiratory exam: Present normal lung sounds bilaterally Cardiovascular Cardiovascular exam: Present regular rate, normal rhythm, normal heart sounds, +S1 and +S2 Extremities Exam Extremities exam: Present full ROM and tenderness (On the bottom of right foot) Neurological Exam Neurological exam: Present alert and oriented X3 Skin Skin exam: Present warm and dry Medical Decision Making Medical Records Screening: Per USPSTF and CDC recommendations, given the prevalence of disease in our region, it is our hospital?s policy to screen for HIV and viral Hepatitis for all patients aged 18 and over and those with ongoing risk factors. Keshawn Inquiry Pt receiving controlled substance: No Keshawn was queried for this patient: No Vital Signs: 05/23/25 15:47 05/23/25 15:49 05/23/25 16:49 Temperature 98.5 F Temperature Source Oral Pulse Rate 74 Pulse Rate [Right Radial] 84 Respiratory Rate 15 Blood Pressure 144/102 H 150/90 H Blood Pressure [Right Arm] 144/102 H Blood Pressure Mean 107 Blood Pressure Mean [Right Arm] 116 Blood Pressure Source [Right Arm] Automatic Cuff Blood Pressure Position [Right Arm] Supine 02 Sat by Pulse Oximetry 97 98 Oxygen Delivery Method Room Air Room Air Orders (Tests/Meds): ED MEDICATIONS Discontinued Medications Generic Name Dose Route Start Last Admin Trade Name Joanne PRN Reason Stop Dose Admin Hydrocodone Bitart/Acetaminophen 1 tab 05/23/25 15:50 05/23/25 15:54 Hydrocodone/Apap 5/325 Mg Tablet PO 05/23/25 15:51 Not Given ONCE ONE Ibuprofen 800 mg 05/23/25 15:54 05/23/25 15:59 Ibuprofen 800 Mg Tablet PO 05/23/25 15:55 800 mg ONCE ONE Administration ORDERS Category Date Time Status Foot XR right minimum 3 views [XR foot RT min 3V] Stat Exams 05/23/25 15:49 Completed HIV Combo Stat Lab 05/23/25 15:58 Ordered Hepatitis C Ab Qual. W/ RFX Stat Lab 05/23/25 15:58 Ordered Medical Decision Narrative: patient is a 24-year-old male presenting to the emergency department for evaluation of right foot pain after dropping a 2 x 6 on. Patient is hemodynamically stable and nontoxic-appearing upon arrival, afebrile. Differential diagnosis includes fracture versus sprain or strain. Workup will be conducted with specific imaging. Initial inventions include analgesics. Imaging informally interpreted by me and remarkable for nothing acute. Formal imaging read remarkable for nothing acute. Patient will get walking boot and be discharged. Patient will need work note. Critical Care Critical Care Time Critical Care Time: No
[2025-05-23 16:49] VITALS: BP 150/90; PULSE 74; O2SAT 98
[2025-05-23 17:07] VITALS: BP 150/85; PULSE 76; RESP 16; TEMP 36.9; O2SAT 99
== END 2025-05-23 17:07 | disposition home or self-care (01) ==
PROVIDERS: Emergency Provider Student in an Organized Health Care Education/Training Program; PCP Family Medicine
DX: S90.812A Abrasion, left foot, initial encounter (principal); F17.290 Nicotine dependence, other tobacco product, uncomplicated; W22.8XXA Striking against or struck by other objects, initial encounter; Y93.89 Activity, other specified
CPT/HCPCS: 73630; 99284